=== PATIENT | female | born 2005 | race Caucasian/White ===

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

== ENCOUNTER 2024-04-14 02:39 | Inpatient (IN) | payer MEDICAID, OTHER ==
[~2024-04-14] VITALS: Ht 165.1 cm; Wt 82.1 kg
[2024-04-14 03:10] LABS: HEMATOCRIT 42.2 % (36.0-47.0); HEMOGLOBIN 14.2 g/dl (12.0-15.5); MEAN CORPUSCULAR HEMOGLOBIN 30.3 pg (27.0-33.0); MEAN CORPUSCULAR HGB CONC 33.6 g/dl (32.0-36.5); MEAN CORPUSCULAR VOLUME 90.2 fl (80.0-96.0); PLATELET COUNT, AUTOMATED 388 10^3/uL (150-450); RED BLOOD COUNT 4.68 10^6/uL (4.00-5.40); WHITE BLOOD COUNT 11.9 10^3/uL (4.0-10.0)
[2024-04-14 03:30] LABS: AMPHETAMINES LEVEL URINE NEGATIVE (NEGATIVE); BARBITURATES URINE NEGATIVE (NEGATIVE); BENZODIAZEPINES URINE NEGATIVE (NEGATIVE); COCAINE METABOLITE URINE NEGATIVE (NEGATIVE); METHADONE URINE NEGATIVE (NEGATIVE); OPIATES URINE NEGATIVE (NEGATIVE); PHENCYCLIDINE URINE NEGATIVE (NEGATIVE)
[2024-04-14 03:32] LABS: ETHYL ALCOHOL (ETHANOL) 0.003 % (0.000-0.010)
[2024-04-14 03:34] LABS: ALBUMIN 4.1 G/DL (3.2-5.2); ALKALINE PHOSPHATASE 92 U/L (46-116); ALT/SGPT 18 U/L (7.0-40); AST/SGOT 12 U/L (<34); BILIRUBIN,DIRECT 0.1 MG/DL (<0.4); BILIRUBIN,TOTAL 0.4 MG/DL (0.3-1.2); BLOOD UREA NITROGEN 15 MG/DL (9-23); CALCIUM LEVEL 10.2 MG/DL (8.5-10.1); CARBON DIOXIDE LEVEL 26 MMOL/L (20-31); CHLORIDE LEVEL 104 MMOL/L (98-107); CREATININE FOR GFR 0.76 MG/DL (0.55-1.30); GLUCOSE, FASTING 92 MG/DL (60-100); SALICYLATE LEVEL < 3.0 MG/DL (<30); SODIUM LEVEL 138 MMOL/L (136-145); TOTAL PROTEIN 7.5 G/DL (5.7-8.2)
[2024-04-14 03:36] LABS: THYROID STIMULATING HORMONE 4.872 uIU/ML (0.48-4.17)
[2024-04-14 03:41] LABS: CANNABINOIDS URINE POSITIVE (NEGATIVE)
[2024-04-14] MEDS ORDERED: IBUPROFEN 400MG TAB PO PRN (06:00)
[2024-04-14] MEDS ORDERED: MAALOX 30 ML SUSP *UDC PO PRN (06:00)
[2024-04-14] MEDS ORDERED: ACETAMINOPHEN TAB 650MG DOSE (2X325MG) PO PRN (06:00)
[2024-04-14] MEDS ORDERED: MOM 30ML SUSPENSION UDC PO PRN (06:00)
[2024-04-14] MEDS ORDERED: NICOTINE 21MG/24HR 1 EA TRANSDERMAL TD PRN (06:00)
[2024-04-14 08:42] VITALS: BP 135/90; TEMP 97.5
[2024-04-14] MEDS ORDERED: HOME MED LIST COMPLETE! XX SCH (10:10)
[2024-04-14 15:42] VITALS: BP 136/85; TEMP 98.2; O2SAT 96
[2024-04-14] MEDS: diphenhydrAMINE 25MG CAP PO PRN (16:01)
[2024-04-15 06:01] VITALS: BP 126/71; TEMP 98.1; O2SAT 95
[2024-04-15] MEDS: ESCITALOPRAM OXALATE 5MG TABLET (LEXAPRO) PO SCH (10:24)
[2024-04-15 16:21] VITALS: BP 135/83; TEMP 98; O2SAT 97
[2024-04-15 21:18] VITALS: BP 170/108
[2024-04-15] MEDS: PRAZOSIN 1 MG CAP PO SCH (21:21)
[2024-04-16 05:53] VITALS: BP 117/63; TEMP 98.6; O2SAT 100
[2024-04-16 18:49] VITALS: BP 137/69; TEMP 99.2
[2024-04-16 21:23] VITALS: BP 154/79
[2024-04-17 06:27] VITALS: BP 120/64; TEMP 98.8; O2SAT 99
[2024-04-17] MEDS: traZODone 50 MG TAB PO PRN (20:43)
[2024-04-18 06:23] VITALS: BP 124/61; TEMP 97; O2SAT 99
[2024-04-18 18:28] VITALS: BP 151/66; TEMP 98.2
[2024-04-18] MEDS: traZODone 50 MG TAB PO PRN (20:39)
[2024-04-18 20:40] VITALS: BP 147/80
[2024-04-19 06:27] VITALS: BP 119/58; TEMP 97.7; O2SAT 97
[2024-04-19] MEDS ORDERED: PRAZ1CAP PO (07:04)
[2024-04-19] MEDS ORDERED: TRAZ-252 PO (07:04)
[2024-04-19] MEDS ORDERED: LEXA5TAB13 PO (07:04)
== END 2024-04-19 11:02 | disposition home or self-care (01) | DRG 754 ==
LOC: M ED 02:39 → M ED INP 05:56 → M PSY 08:39
PROVIDERS: ADMIT Student in an Organized Health Care Education/Training Program; ATTEND Student in an Organized Health Care Education/Training Program
DX: F32.A Depression, unspecified (principal); F60.89 Other specific personality disorders; Z91.52 Personal history of nonsuicidal self-harm; Z81.8 Family history of other mental and behavioral disorders; Z63.8 Other specified problems related to primary support group; Z88.1 Allergy status to other antibiotic agents; F43.10 Post-traumatic stress disorder, unspecified

== ENCOUNTER → 2024-05-10 | Outpatient (REF) | payer MEDICAID ==
[~2024-05-10] MED LIST changes: +LEXA5TAB13 PO; +PRAZ1CAP PO; +TRAZ-252 PO
[2024-05-10 13:10] LABS: TOTAL 25(OH) VITAMIN D 33.2 NG/ML (20.0-100.0)
[2024-05-10 13:11] LABS: ALKALINE PHOSPHATASE 77 U/L (46-116); ALT/SGPT 20 U/L (7.0-40); AST/SGOT 11 U/L (<34); BILIRUBIN,TOTAL 0.3 MG/DL (0.3-1.2); BLOOD UREA NITROGEN 18 MG/DL (9-23); CALCIUM LEVEL 9.9 MG/DL (8.5-10.1); CARBON DIOXIDE LEVEL 29 MMOL/L (20-31); CHLORIDE LEVEL 108 MMOL/L (98-107); CHOLESTEROL LEVEL 138 MG/DL (<200); CHOLESTEROL RISK RATIO 3.17 (<5); CREATININE FOR GFR 0.73 MG/DL (0.55-1.30); GLUCOSE, FASTING 73 MG/DL (60-100); HDL CHOLESTEROL 43.5 MG/DL (>40); LDL CHOLESTEROL 82.3 MG/DL (<100); NON-HDL-C 94.5 MG/DL; POTASSIUM SERUM 4.2 MMOL/L (3.5-5.1); SODIUM LEVEL 140 MMOL/L (136-145); TOTAL PROTEIN 7.3 G/DL (5.7-8.2); TRIGLYCERIDES LEVEL 61 MG/DL (<150)
[2024-05-10 13:12] LABS: THYROID STIMULATING HORMONE 1.051 uIU/ML (0.48-4.17)
[2024-05-10 13:22] LABS: HEMOGLOBIN A1c 4.8 % (4.0-6.0)
== END ==
LOC: M LAB REF 12:18
PROVIDERS: ATTEND Physician Assistant
DX: E66.9 Obesity, unspecified (principal); Z11.9 Encounter for screening for infectious and parasitic diseases, unspecified; E55.9 Vitamin D deficiency, unspecified

== ENCOUNTER 2024-11-03 14:07 | Emergency (ER) | payer MEDICAID, OTHER, SELFPAY ==
[~2024-11-03] VITALS: Ht 162.6 cm; Wt 80.5 kg
[2024-11-03] MEDS ORDERED: MIRA3350 PO (16:05)
[2024-11-03] MEDS ORDERED: HYDR26CR TOP (16:05)
[2024-11-03 16:23] VITALS: BP 122/76; TEMP 98.7; O2SAT 98
== END 2024-11-03 16:25 | disposition home or self-care (01) ==
LOC: M ED 14:07
DX: K64.8 Other hemorrhoids (principal); K62.89 Other specified diseases of anus and rectum; F32.A Depression, unspecified; F17.290 Nicotine dependence, other tobacco product, uncomplicated; Z88.1 Allergy status to other antibiotic agents; Z79.810 Long term (current) use of selective estrogen receptor modulators (SERMs)

== ENCOUNTER 2024-11-05 12:59 | Inpatient (IN) | payer MEDICAID, OTHER, SELFPAY ==
[~2024-11-05] VITALS: Ht 162.6 cm; Wt 78.8 kg
[~2024-11-05 12:59] MED LIST changes: +HYDR26CR TOP; +MIRA3350 PO
[2024-11-05 14:32] LABS: HEMATOCRIT 42.7 % (36.0-47.0); HEMOGLOBIN 14.1 g/dl (12.0-15.5); MEAN CORPUSCULAR HEMOGLOBIN 30.3 pg (27.0-33.0); MEAN CORPUSCULAR VOLUME 91.6 fl (80.0-96.0); PLATELET COUNT, AUTOMATED 348 10^3/uL (150-450); RED BLOOD COUNT 4.66 10^6/uL (4.00-5.40); WHITE BLOOD COUNT 9.6 10^3/uL (4.0-10.0)
[2024-11-05 15:02] LABS: ETHYL ALCOHOL (ETHANOL) 0.004 % (0.000-0.010)
[2024-11-05 15:04] LABS: SALICYLATE LEVEL < 3.0 MG/DL (<30)
[2024-11-05 15:05] LABS: HCG, SERUM QUALITATIVE NEGATIVE (NEGATIVE)
[2024-11-05 15:54] LABS: AMPHETAMINES LEVEL URINE NEGATIVE (NEGATIVE)
[2024-11-05 15:55] LABS: BARBITURATES URINE NEGATIVE (NEGATIVE); BENZODIAZEPINES URINE NEGATIVE (NEGATIVE); COCAINE METABOLITE URINE NEGATIVE (NEGATIVE); METHADONE URINE NEGATIVE (NEGATIVE); OPIATES URINE NEGATIVE (NEGATIVE); PHENCYCLIDINE URINE NEGATIVE (NEGATIVE)
[2024-11-05 16:00] LABS: CANNABINOIDS URINE POSITIVE (NEGATIVE)
[2024-11-05 16:12] LABS: ALBUMIN 3.9 G/DL (3.2-5.2); ALKALINE PHOSPHATASE 77 U/L (35-104); ALT/SGPT 26 U/L (7.0-40); AST/SGOT 18 U/L (<34); BILIRUBIN,DIRECT 0.1 MG/DL (<0.4); BILIRUBIN,TOTAL 0.3 MG/DL (0.3-1.2); BLOOD UREA NITROGEN 16 MG/DL (9-23); CALCIUM LEVEL 9.4 MG/DL (8.5-10.1); CARBON DIOXIDE LEVEL 30 MMOL/L (20-31); CHLORIDE LEVEL 105 MMOL/L (98-107); CREATININE FOR GFR 0.79 MG/DL (0.55-1.30); GLUCOSE, FASTING 106 MG/DL (60-100); POTASSIUM SERUM 4.6 MMOL/L (3.5-5.1); SODIUM LEVEL 142 MMOL/L (136-145); THYROID STIMULATING HORMONE 0.652 uIU/ML (0.48-4.17)
[2024-11-05] MEDS ORDERED: LEXA1TAB PO (16:17)
[2024-11-05] MEDS ORDERED: HYDR1CRE30 TOP (16:21)
[2024-11-05] MEDS ORDERED: POLY510P14 PO (16:21)
[2024-11-05] MEDS ORDERED: THERTAB52 PO (16:22)
[2024-11-05] MEDS ORDERED: HOME MED LIST COMPLETE! XX SCH (16:25)
[2024-11-05] MEDS ORDERED: IBUPROFEN 400MG TAB PO PRN (18:05)
[2024-11-05] MEDS ORDERED: MAALOX 30 ML SUSP *UDC PO PRN (18:05)
[2024-11-05] MEDS ORDERED: OLANZapine 5 MG TAB PO PRN (18:05)
[2024-11-05] MEDS ORDERED: ACETAMINOPHEN 325 MG TAB PO PRN (18:05)
[2024-11-05] MEDS ORDERED: MOM 30ML SUSPENSION UDC PO PRN (18:05)
[2024-11-05 21:03] VITALS: BP 132/68; TEMP 97.2; O2SAT 99
[2024-11-06 06:45] VITALS: BP 142/94; TEMP 97; O2SAT 99
[2024-11-06] MEDS: NICOTINE 14 MG/24 HR TRANSDERMAL TD SCH (09:00)
[2024-11-06 15:49] VITALS: BP 130/83; TEMP 98; O2SAT 99
[2024-11-06] MEDS: diphenhydrAMINE 25MG CAP PO PRN (20:46)
[2024-11-06] MEDS: traZODone 50 MG TAB PO PRN (20:46)
[2024-11-07] MEDS: ESCITALOPRAM OXALATE 10 MG TAB (LEXAPRO) PO SCH (08:53)
[2024-11-07 17:16] VITALS: BP 150/70; TEMP 97.5; O2SAT 99
[2024-11-07] MEDS: traZODone 100 MG TAB PO PRN (20:23)
[2024-11-08 15:16] VITALS: BP 142/79; TEMP 98.2; O2SAT 98
[2024-11-08] MEDS: QUEtiapine FUMARATE 50MG TAB PO SCH (20:11)
[2024-11-09 06:33] VITALS: BP 127/72; TEMP 97.6; O2SAT 100
[2024-11-09 14:51] VITALS: BP 141/88; TEMP 97.8; O2SAT 98
[2024-11-10 16:05] VITALS: BP 150/85; TEMP 97.7; O2SAT 98
[2024-11-11 06:31] VITALS: BP 127/76; TEMP 98.1; O2SAT 100
[2024-11-11 15:53] VITALS: BP 137/85; TEMP 98.8; O2SAT 99
[2024-11-12 06:30] VITALS: BP 126/70; TEMP 98.1; O2SAT 98
[2024-11-12] MEDS ORDERED: QUET50TA4 PO (10:48)
[2024-11-12] MEDS ORDERED: LEXA1TAB PO (10:48)
== END 2024-11-12 14:05 | disposition home or self-care (01) | DRG 755 ==
LOC: M ED 12:59 → EDBD 12:59 → M ED INP 18:03 → M PSY 20:31
PROVIDERS: ADMIT Psychiatry & Neurology Neurology; ATTEND Psychiatry & Neurology Psychiatry
DX: F43.10 Post-traumatic stress disorder, unspecified (principal); Z91.148 Patient's other noncompliance with medication regimen for other reason; R45.851 Suicidal ideations; F17.290 Nicotine dependence, other tobacco product, uncomplicated; K08.89 Other specified disorders of teeth and supporting structures; K02.9 Dental caries, unspecified; F41.1 Generalized anxiety disorder; Z88.1 Allergy status to other antibiotic agents

== ENCOUNTER → 2025-01-08 | Outpatient (REF) | payer MEDICAID, OTHER ==
[~2025-01-08] MED LIST changes: +HYDR1CRE30 TOP; +LEXA1TAB PO; +POLY510P14 PO; +QUET50TA4 PO; +THERTAB52 PO
[2025-01-08 15:38] LABS: ALBUMIN 4.1 G/DL (3.2-5.2); ALKALINE PHOSPHATASE 72 U/L (35-104); ALT/SGPT 23 U/L (7.0-40); AST/SGOT 16 U/L (<34); BILIRUBIN,TOTAL 0.8 MG/DL (0.3-1.2); BLOOD UREA NITROGEN 13 MG/DL (9-23); CALCIUM LEVEL 9.6 MG/DL (8.5-10.1); CARBON DIOXIDE LEVEL 29 MMOL/L (20-31); CHLORIDE LEVEL 106 MMOL/L (98-107); GLUCOSE, FASTING 74 MG/DL (60-100); POTASSIUM SERUM 4.4 MMOL/L (3.5-5.1); SODIUM LEVEL 142 MMOL/L (136-145); TOTAL PROTEIN 7.7 G/DL (5.7-8.2)
[2025-01-08 15:42] LABS: BASO # 0.1 10^3/uL (0.0-0.2); BASO % 0.7 % (0.0-1.0); EOS # 0.1 10^3/uL (0.0-0.5); EOS % 0.6 % (0.0-3.0); HEMATOCRIT 43.2 % (36.0-47.0); LYMPH # 2.3 10^3/uL (1.5-5.0); LYMPH % 23.7 % (24.0-44.0); MEAN CORPUSCULAR HEMOGLOBIN 29.7 pg (27.0-33.0); MEAN CORPUSCULAR HGB CONC 32.4 g/dl (32.0-36.5); MEAN CORPUSCULAR VOLUME 91.7 fl (80.0-96.0); MONO # 0.8 10^3/uL (0.0-0.8); MONO % 8.1 % (2.0-8.0); NEUTROPHILS # 6.3 10^3/uL (1.5-8.5); NEUTROPHILS % 66.6 % (36.0-66.0); PLATELET COUNT, AUTOMATED 372 10^3/uL (150-450); RED BLOOD COUNT 4.71 10^6/uL (4.00-5.40); WHITE BLOOD COUNT 9.5 10^3/uL (4.0-10.0)
[2025-01-08 15:54] LABS: HEMOGLOBIN A1c 4.9 % (4.0-6.0)
== END ==
LOC: M LAB REF 15:08
PROVIDERS: ATTEND Physician Assistant
DX: R55 Syncope and collapse (principal)

== ENCOUNTER → 2025-01-31 | Outpatient (CLI) | payer OTHER | LOC: M RAD 15:57 | PROVIDERS: ATTEND Physician Assistant | DX: R55 Syncope and collapse (principal) ==